=== PATIENT | female | born 1950 | race Caucasian/White ===

== ENCOUNTER 2022-10-03 07:37 | Day surgery (SDC) | payer OTHER ==
[~2022-10-03] VITALS: Ht 157.5 cm; Wt 55.3 kg
[~2022-10-03 07:37] MED LIST: ASPI81CH; Bactrim Ds Tab1 EACH PO; CELE100; ESCI5 PO; Voltaren100 GM
[2022-10-03] MEDS ORDERED: ACULAR5 ML (07:58)
[2022-10-03 10:08] VITALS: BP 123/81
== END 2022-10-03 10:12 | disposition home or self-care (01) ==
LOC: ORSCSDS 07:37
PROVIDERS: Internal Medicine Gastroenterology
PROC: 0DBK8ZX Excision of Ascending Colon, Via Natural or Artificial Opening Endoscopic, Diagnostic (ICD-10-PCS; principal; 2022-10-03 09:00)
DX: Z12.11 Encounter for screening for malignant neoplasm of colon (principal); Z86.010 Personal history of colon polyps; Z80.0 Family history of malignant neoplasm of digestive organs; D12.2 Benign neoplasm of ascending colon; K64.8 Other hemorrhoids; Z79.899 Other long term (current) drug therapy
CPT/HCPCS: 88305; J2704; J7120

== ENCOUNTER 2023-12-13 04:00 | Day surgery (SDC) | payer OTHER ==
[~2023-12-13 04:00] MED LIST changes: +ACULAR5 ML
[2023-12-13] MEDS ORDERED: Lidocaine HCl 4% Cream 5 GM ONE (13:25)
== END 2023-12-13 23:00 | disposition home or self-care (01) ==
LOC: WOUND 04:00
DX: L89.894 Pressure ulcer of other site, stage 4 (principal); I87.2 Venous insufficiency (chronic) (peripheral); Z90.49 Acquired absence of other specified parts of digestive tract; Z90.710 Acquired absence of both cervix and uterus
CPT/HCPCS: A9270; G0463

== ENCOUNTER → 2024-06-25 | Outpatient (CLI) | payer OTHER | LOC: LAB SHORT 19:03 → LAB 19:03 | DX: L97.512 Non-pressure chronic ulcer of other part of right foot with fat layer exposed (principal) | CPT/HCPCS: 87070; 87075; 87077; 87205 ==